=== PATIENT | female | born 1945 | race Caucasian/White ===

== ENCOUNTER 2021-08-30 15:11 | Observation (INO) ==
[2021-08-30 17:44] LABS: Albumin 4.5 g/dL (3.5-5.7); Albumin/Globulin Ratio 1.6 (1.1-2.2); Bilirubin,Total 0.4 mg/dL (0.3-1.0); Calcium 10.2 mg/dL (8.6-10.3); Globulin 2.8 g/dL (2.4-3.5); Potassium 3.5 mEq/L (3.5-5.1); Total Protein 7.3 g/dL (6.4-8.9)
[2021-08-30 17:46] LABS: Basophils # 0.1 K/mcL (0.0-0.2); Basophils % 0.5 %; Eosinophils # 0.3 K/mcL (0.0-0.6); Hematocrit 44.8 % (35.3-44.9); Hemoglobin 14.9 g/dL (11.5-15.4); Immature Granulocytes % 0.3 % (0-4); Lymphocytes # 1.3 K/mcL (0.6-4.6); Lymphocytes % 11.8 %; Mean Corpuscular HGB Conc 33.3 g/dL (31.6-35.5); Mean Corpuscular Hemoglobin 30.5 pg (28.0-33.3); Mean Corpuscular Volume 91.6 fL (83.0-100.0); Mean Platelet Volume 11.6 fL (9.4-12.4); Monocytes # 0.7 K/mcL (0.0-1.3); Neutrophils # 8.6 K/mcL (1.6-8.9); Platelet Count 257 K/mcL (140-400); Red Blood Count 4.89 M/mcL (3.82-4.97); Red Cell Distribution Width 13.2 % (11.5-14.5); Segmented Neutrophils % 78.4 %; White Blood Count 10.9 K/mcL (4.3-11.1)
[2021-08-30 18:02] LABS: Bilirubin,Urine Negative (Negative); Blood,Urine Negative (Negative); Clarity,Urine Clear (Clear); Color,Urine Light-Yellow (Yellow); Glucose,Urine (UA) Normal (Normal); Ketones,Urine Negative (Negative); Leukocyte Esterase,Urine Negative (Negative); Nitrite,Urine Negative (Negative); PH,Urine 6.5 pH Units (5.0-8.0); Protein,Urine Negative (Neg-Trace); Specific Gravity,Urine 1.015 (1.010-1.025); Urobilinogen,Urine Normal (Normal)
[2021-08-30] MEDS ORDERED: Melatonin 3 MG TABLET PO PRN (20:35)
[2021-08-30] MEDS ORDERED: Ondansetron ODT 4 MG TAB.RAPDIS SL PRN (20:35)
[2021-08-30] MEDS ORDERED: Naloxone 0.4 MG/ML INJ IVP PRN (20:35)
[2021-08-30] MEDS ORDERED: *HR* HYDROcodone/Acet 5/325 mg TABLET PO PRN (21:14)
[2021-08-30] MEDS ORDERED: Acetaminophen 325 MG TABLET PO PRN (21:14)
[2021-08-30 21:43] LABS: INR 1.1; Phosphorous 4.2 mg/dL (2.7-4.5); Prothrombin Time 12.3 Seconds (9.4-12.1)
[2021-08-30 21:46] LABS: Activated Partial Thrombo Time 32.7 Seconds (26.0-36.0)
[2021-08-30] MEDS ORDERED: 0.9 % Sodium Chloride 1,000 ML IVC SCH (21:52)
[2021-08-30] MEDS ORDERED: *HR* Dextrose 50 % in Water (Syg) 50 ML SYRINGE IVP PRN (22:32)
[2021-08-30] MEDS ORDERED: Gadolinium Contrast Agent (WT Based) IV PRN (22:34)
[2021-08-30] MEDS ORDERED: Dexamethasone Sodium Phos/PF 10 MG/ML VIAL IVP ONE (22:45)
[2021-08-30] MEDS: Gabapentin 100 MG CAPSULE PO SCH (22:52)
[2021-08-30] MEDS: *HR* HYDROcodone/Acet 5/325 mg TABLET PO PRN (23:12)
[2021-08-31 00:51] LABS: Basophils # 0.1 K/mcL (0.0-0.2); Basophils % 0.7 %; Eosinophils # 0.3 K/mcL (0.0-0.6); Eosinophils % 3.3 %; Hemoglobin 13.5 g/dL (11.5-15.4); Immature Granulocytes % 0.3 % (0-4); Lymphocytes # 0.9 K/mcL (0.6-4.6); Lymphocytes % 8.3 %; Mean Corpuscular HGB Conc 32.9 g/dL (31.6-35.5); Mean Corpuscular Hemoglobin 30.7 pg (28.0-33.3); Mean Corpuscular Volume 93.2 fL (83.0-100.0); Monocytes # 0.4 K/mcL (0.0-1.3); Monocytes % 3.5 %; Neutrophils # 8.7 K/mcL (1.6-8.9); Platelet Count 233 K/mcL (140-400); Red Cell Distribution Width 13.1 % (11.5-14.5); Segmented Neutrophils % 83.9 %; White Blood Count 10.4 K/mcL (4.3-11.1)
[2021-08-31 01:10] LABS: Calcium 9.5 mg/dL (8.6-10.3); Chol/HDL Ratio 3.3 (0-4.9); Potassium 3.5 mEq/L (3.5-5.1)
[2021-08-31] MEDS: *HR* HYDROcodone/Acet 5/325 mg TABLET PO PRN ×2 (07:07→14:50)
[2021-08-31] MEDS: Gabapentin 100 MG CAPSULE PO SCH (08:45)
[2021-08-31] MEDS ORDERED: Fluticasone Propionate Nasal 50 MCG/SPRAY BOTTLE NS PRN (11:12)
[2021-08-31] MEDS ORDERED: Triamterene/HCTZ 75/50 mg TABLET PO SCH (11:15)
[2021-08-31] MEDS ORDERED: D5% in Water 1,000 ML IVC PRN (13:21)
[2021-08-31] MEDS ORDERED: Dextrose Gel 15 GM/37.5 ML TUBE PO PRN ×2 (13:21)
[2021-08-31] MEDS: Baclofen 10 MG TABLET PO SCH (20:56)
[2021-08-31] MEDS: Gabapentin 300 MG CAPSULE PO SCH (20:56)
[2021-08-31] MEDS: traZODone 50 MG TABLET PO SCH (20:56)
[2021-09-01 02:59] LABS: Basophils # 0.1 K/mcL (0.0-0.2); Basophils % 0.5 %; Eosinophils # 0.2 K/mcL (0.0-0.6); Eosinophils % 1.5 %; Hematocrit 37.4 % (35.3-44.9); Hemoglobin 12.1 g/dL (11.5-15.4); Immature Granulocytes % 0.3 % (0-4); Lymphocytes # 1.7 K/mcL (0.6-4.6); Lymphocytes % 15.5 %; Mean Corpuscular HGB Conc 32.4 g/dL (31.6-35.5); Mean Corpuscular Hemoglobin 30.3 pg (28.0-33.3); Mean Corpuscular Volume 93.5 fL (83.0-100.0); Mean Platelet Volume 10.9 fL (9.4-12.4); Monocytes # 0.6 K/mcL (0.0-1.3); Monocytes % 5.9 %; Neutrophils # 8.1 K/mcL (1.6-8.9); Platelet Count 234 K/mcL (140-400); Red Cell Distribution Width 13.1 % (11.5-14.5); Segmented Neutrophils % 76.3 %; White Blood Count 10.6 K/mcL (4.3-11.1)
[2021-09-01 03:18] LABS: Calcium 9.2 mg/dL (8.6-10.3)
[2021-09-01] MEDS ORDERED: Tiotropium 10 INH DOSE IH ONE (07:14)
[2021-09-01] MEDS: Tiotropium 10 INH DOSE IH SCH (07:27)
[2021-09-01] MEDS: Baclofen 10 MG TABLET PO SCH ×2 (09:13→20:10)
[2021-09-01] MEDS: Gabapentin 300 MG CAPSULE PO SCH ×2 (09:13→20:11)
[2021-09-01] MEDS: Furosemide 40 MG TABLET PO SCH (09:13)
[2021-09-01] MEDS: Aspirin Enteric Coated 81 MG Tablet PO SCH (09:14)
[2021-09-01] MEDS: Cholecalciferol (D-3) 1,000 UNIT (25MCG) TABLET PO SCH (09:14)
[2021-09-01] MEDS: *HR* HYDROcodone/Acet 5/325 mg TABLET PO PRN ×2 (09:20→17:11)
[2021-09-01] MEDS: traZODone 50 MG TABLET PO SCH (20:10)
[2021-09-02 03:58] LABS: Basophils # 0.1 K/mcL (0.0-0.2); Basophils % 0.6 %; Eosinophils # 0.3 K/mcL (0.0-0.6); Eosinophils % 3.3 %; Hematocrit 37.8 % (35.3-44.9); Hemoglobin 12.1 g/dL (11.5-15.4); Immature Granulocytes % 0.3 % (0-4); Lymphocytes # 1.8 K/mcL (0.6-4.6); Lymphocytes % 20.5 %; Mean Corpuscular Hemoglobin 29.8 pg (28.0-33.3); Mean Corpuscular Volume 93.1 fL (83.0-100.0); Mean Platelet Volume 11.1 fL (9.4-12.4); Monocytes # 0.5 K/mcL (0.0-1.3); Monocytes % 5.6 %; Neutrophils # 6.2 K/mcL (1.6-8.9); Platelet Count 221 K/mcL (140-400); Red Blood Count 4.06 M/mcL (3.82-4.97); Red Cell Distribution Width 13.2 % (11.5-14.5); Segmented Neutrophils % 69.7 %; White Blood Count 8.9 K/mcL (4.3-11.1)
[2021-09-02 04:11] LABS: Potassium 3.4 mEq/L (3.5-5.1)
[2021-09-02] MEDS: Tiotropium 10 INH DOSE IH SCH (07:28)
[2021-09-02] MEDS: Aspirin Enteric Coated 81 MG Tablet PO SCH (08:12)
[2021-09-02] MEDS: Baclofen 10 MG TABLET PO SCH ×2 (08:12→20:43)
[2021-09-02] MEDS: Cholecalciferol (D-3) 1,000 UNIT (25MCG) TABLET PO SCH (08:12)
[2021-09-02] MEDS: Furosemide 40 MG TABLET PO SCH (08:12)
[2021-09-02] MEDS: Gabapentin 300 MG CAPSULE PO SCH ×2 (08:12→20:43)
[2021-09-02] MEDS: *HR* HYDROcodone/Acet 5/325 mg TABLET PO PRN ×2 (08:25→17:18)
[2021-09-02] MEDS: traZODone 50 MG TABLET PO SCH (20:43)
[2021-09-03 03:11] LABS: Basophils % 0.4 %; Eosinophils # 0.4 K/mcL (0.0-0.6); Eosinophils % 3.7 %; Hematocrit 38.9 % (35.3-44.9); Hemoglobin 12.6 g/dL (11.5-15.4); Immature Granulocytes % 0.4 % (0-4); Lymphocytes # 1.8 K/mcL (0.6-4.6); Lymphocytes % 19.1 %; Mean Corpuscular HGB Conc 32.4 g/dL (31.6-35.5); Mean Corpuscular Hemoglobin 30.4 pg (28.0-33.3); Mean Corpuscular Volume 93.7 fL (83.0-100.0); Mean Platelet Volume 11.1 fL (9.4-12.4); Monocytes # 0.6 K/mcL (0.0-1.3); Monocytes % 6.1 %; Neutrophils # 6.7 K/mcL (1.6-8.9); Platelet Count 205 K/mcL (140-400); Red Blood Count 4.15 M/mcL (3.82-4.97); Red Cell Distribution Width 13.2 % (11.5-14.5); Segmented Neutrophils % 70.3 %; White Blood Count 9.5 K/mcL (4.3-11.1)
[2021-09-03 03:28] LABS: BUN/Creatinine Ratio 29 (6-26); Blood Urea Nitrogen 30 mg/dL (8-23); Calcium 9.4 mg/dL (8.6-10.3); Carbon Dioxide 27 mEq/L (23-29); Chloride 110 mEq/L (98-107); Glucose 113 mg/dL (70-105); Osmolality,Calculated 305 (280-300); Potassium 3.4 mEq/L (3.5-5.1); Sodium 144 mEq/L (136-145); eGFR For African Americans > 60 (> 60); eGFR For Non-African Americans 51 (> 60)
[2021-09-03] MEDS: *HR* HYDROcodone/Acet 5/325 mg TABLET PO PRN (03:41)
[2021-09-03] MEDS: Tiotropium 10 INH DOSE IH SCH (08:01)
[2021-09-03] MEDS: Aspirin Enteric Coated 81 MG Tablet PO SCH (09:15)
[2021-09-03] MEDS: Gabapentin 300 MG CAPSULE PO SCH ×2 (09:15→20:35)
[2021-09-03] MEDS: Cholecalciferol (D-3) 1,000 UNIT (25MCG) TABLET PO SCH (09:15)
[2021-09-03] MEDS: Baclofen 10 MG TABLET PO SCH ×2 (09:15→20:34)
[2021-09-03] MEDS: Furosemide 40 MG TABLET PO SCH (09:15)
[2021-09-03] MEDS: *HR* OxyCODONE Immed Rel 5 MG TABLET PO PRN ×2 (10:39→15:32)
[2021-09-03] MEDS: *HR* Heparin 5,000 UNIT/ML VIAL SQ SCH ×2 (15:30→20:35)
[2021-09-03] MEDS: traZODone 50 MG TABLET PO SCH (20:34)
[2021-09-04] MEDS: *HR* Heparin 5,000 UNIT/ML VIAL SQ SCH ×3 (05:19→20:49)
[2021-09-04] MEDS: Tiotropium 10 INH DOSE IH SCH (07:37)
[2021-09-04] MEDS: Insulin LISPRO 300 UNITS/3 ML VIAL SUBQ SCH ×4 (08:13→20:43)
[2021-09-04] MEDS: Gabapentin 300 MG CAPSULE PO SCH ×2 (08:21→20:49)
[2021-09-04] MEDS: Aspirin Enteric Coated 81 MG Tablet PO SCH (08:21)
[2021-09-04] MEDS: Baclofen 10 MG TABLET PO SCH ×2 (08:22→20:49)
[2021-09-04] MEDS: Furosemide 40 MG TABLET PO SCH (08:22)
[2021-09-04] MEDS: Cholecalciferol (D-3) 1,000 UNIT (25MCG) TABLET PO SCH (08:22)
[2021-09-04] MEDS: *HR* OxyCODONE Immed Rel 5 MG TABLET PO PRN (11:35)
[2021-09-04] MEDS: traZODone 50 MG TABLET PO SCH (20:48)
[2021-09-05 03:20] LABS: Basophils # 0.1 K/mcL (0.0-0.2); Basophils % 0.5 %; Eosinophils # 0.2 K/mcL (0.0-0.6); Eosinophils % 2.4 %; Hematocrit 37.1 % (35.3-44.9); Hemoglobin 11.8 g/dL (11.5-15.4); Immature Granulocytes % 0.4 % (0-4); Lymphocytes # 1.4 K/mcL (0.6-4.6); Mean Corpuscular HGB Conc 31.8 g/dL (31.6-35.5); Mean Corpuscular Hemoglobin 29.9 pg (28.0-33.3); Mean Corpuscular Volume 94.2 fL (83.0-100.0); Mean Platelet Volume 11.6 fL (9.4-12.4); Monocytes # 0.6 K/mcL (0.0-1.3); Monocytes % 6.4 %; Neutrophils # 7.5 K/mcL (1.6-8.9); Platelet Count 182 K/mcL (140-400); Red Blood Count 3.94 M/mcL (3.82-4.97); Red Cell Distribution Width 13.2 % (11.5-14.5); Segmented Neutrophils % 76.3 %; White Blood Count 9.8 K/mcL (4.3-11.1)
[2021-09-05 03:36] LABS: BUN/Creatinine Ratio 31 (6-26); Blood Urea Nitrogen 36 mg/dL (8-23); Calcium 9.4 mg/dL (8.6-10.3); Carbon Dioxide 26 mEq/L (23-29); Chloride 106 mEq/L (98-107); Glucose 113 mg/dL (70-105); Osmolality,Calculated 303 (280-300); Potassium 3.2 mEq/L (3.5-5.1); Sodium 142 mEq/L (136-145); eGFR For African Americans 55 (> 60); eGFR For Non-African Americans 46 (> 60)
[2021-09-05] MEDS: *HR* Heparin 5,000 UNIT/ML VIAL SQ SCH ×3 (05:24→21:18)
[2021-09-05] MEDS: Tiotropium 10 INH DOSE IH SCH (07:20)
[2021-09-05] MEDS: Furosemide 40 MG TABLET PO SCH (07:52)
[2021-09-05] MEDS: Gabapentin 300 MG CAPSULE PO SCH ×2 (07:52→21:17)
[2021-09-05] MEDS: Aspirin Enteric Coated 81 MG Tablet PO SCH (07:53)
[2021-09-05] MEDS: Cholecalciferol (D-3) 1,000 UNIT (25MCG) TABLET PO SCH (07:53)
[2021-09-05] MEDS: Baclofen 10 MG TABLET PO SCH ×2 (07:53→21:17)
[2021-09-05] MEDS: Insulin LISPRO 300 UNITS/3 ML VIAL SUBQ SCH ×4 (08:01→20:47)
[2021-09-05] MEDS: traZODone 50 MG TABLET PO SCH (21:17)
[2021-09-06] MEDS: *HR* Heparin 5,000 UNIT/ML VIAL SQ SCH ×2 (05:38→13:02)
[2021-09-06] MEDS: Tiotropium 10 INH DOSE IH SCH (07:13)
[2021-09-06] MEDS: Insulin LISPRO 300 UNITS/3 ML VIAL SUBQ SCH ×3 (08:37→19:47)
[2021-09-06] MEDS: Aspirin Enteric Coated 81 MG Tablet PO SCH (09:33)
[2021-09-06] MEDS: Gabapentin 300 MG CAPSULE PO SCH ×2 (09:34→20:06)
[2021-09-06] MEDS: Baclofen 10 MG TABLET PO SCH ×2 (09:34→20:06)
[2021-09-06] MEDS: Cholecalciferol (D-3) 1,000 UNIT (25MCG) TABLET PO SCH (09:34)
[2021-09-06] MEDS: Furosemide 40 MG TABLET PO SCH (09:34)
[2021-09-06 15:46] VITALS: TEMP 98.4; O2SAT 95
[2021-09-06 17:15] LABS: Influenza A PCR Negative (Negative); Influenza B PCR Negative (Negative); Resp. Syncytial Virus PCR Negative (Negative)
[2021-09-06 17:16] LABS: SARS-CoV-2 by PCR (In House) Negative (Negative)
[2021-09-06 18:55] LABS: Metanephrine, Plasma 0.22 nmol/L (0.00-0.49)
[2021-09-06] MEDS: *HR* OxyCODONE Immed Rel 5 MG TABLET PO PRN (20:06)
[2021-09-06] MEDS: traZODone 50 MG TABLET PO SCH (20:06)
[2021-09-06 20:11] VITALS: BP 115/71; PULSE 76
== END 2021-09-06 22:22 ==
LOC: 3ANU 15:11 → EMEROOARM 15:11 → SUATTDRO 20:24 → 3ANU 20:59 → UNDODISOB 09-04 16:28
PROVIDERS: ADMIT Internal Medicine; ATTEND Family Medicine

== ENCOUNTER 2021-10-23 15:16 | Inpatient (IN) ==
[2021-10-23 19:42] LABS: VBG HCO3 31 mEq/L (21-27); VBG PCO2 59 mmHg (41-51); VBG PH 7.33 pH Units (7.32-7.42); VBG PO2 61 mmHg (25-50)
[2021-10-23 19:42] LABS: Basophils % 0.4 %; Eosinophils # 0.1 K/mcL (0.0-0.6); Hematocrit 42.3 % (35.3-44.9); Hemoglobin 13.4 g/dL (11.5-15.4); Immature Granulocytes % 0.3 % (0-4); Lymphocytes % 9.8 %; Mean Corpuscular HGB Conc 31.7 g/dL (31.6-35.5); Mean Corpuscular Hemoglobin 29.5 pg (28.0-33.3); Mean Corpuscular Volume 93.2 fL (83.0-100.0); Monocytes # 0.4 K/mcL (0.0-1.3); Monocytes % 3.4 %; Neutrophils # 8.6 K/mcL (1.6-8.9); Platelet Count 288 K/mcL (140-400); Red Blood Count 4.54 M/mcL (3.82-4.97); Red Cell Distribution Width 12.8 % (11.5-14.5); Segmented Neutrophils % 85.1 %; White Blood Count 10.2 K/mcL (4.3-11.1)
[2021-10-23 20:27] LABS: Influenza A PCR Negative (Negative); Influenza B PCR Negative (Negative); Resp. Syncytial Virus PCR Negative (Negative)
[2021-10-23 20:32] LABS: Alanine Aminotransferase 6 Units/L (7-52); Albumin 4.4 g/dL (3.5-5.7); Albumin/Globulin Ratio 1.5 (1.1-2.2); Alkaline Phosphatase 81 Units/L (34-104); Aspartate Amino Transferase 14 Units/L (13-39); BUN/Creatinine Ratio 33 (6-26); Bilirubin,Total 0.3 mg/dL (0.3-1.0); Blood Urea Nitrogen 61 mg/dL (8-23); Carbon Dioxide 31 mEq/L (23-29); Chloride 101 mEq/L (98-107); Globulin 2.9 g/dL (2.4-3.5); Glucose 122 mg/dL (70-105); Osmolality,Calculated 313 (280-300); Potassium 4.1 mEq/L (3.5-5.1); Sodium 142 mEq/L (136-145); Total Protein 7.3 g/dL (6.4-8.9); Troponin I < 0.03 ng/mL (< 0.04); eGFR For African Americans 32 (> 60); eGFR For Non-African Americans 27 (> 60)
[2021-10-23 20:53] LABS: SARS-CoV-2 by PCR (In House) Negative (Negative)
[2021-10-23] MEDS ORDERED: methylPREDNISolone 125 MG/2 ML VIAL IVP ONE (21:14)
[2021-10-23] MEDS ORDERED: Ipratropium/Albuterol Neb 3 ML IH ONE (21:14)
[2021-10-23] MEDS ORDERED: Azithromycin 500 MG in 0.9 % Sodium Chloride 250 ML IVPB ONE (21:15)
[2021-10-23] MEDS ORDERED: cefTRIAXone 1,000 MG in 0.9 % Sodium Chloride 10 ML IVP ONE (21:15)
[2021-10-23] MEDS ORDERED: Naloxone 0.4 MG/ML INJ IVP PRN (22:43)
[2021-10-23] MEDS ORDERED: Acetaminophen 325 MG TABLET PO PRN (22:43)
[2021-10-23] MEDS ORDERED: Ondansetron 4 MG/2 ML VIAL IVP PRN (22:43)
[2021-10-23] MEDS ORDERED: Melatonin 3 MG TABLET PO PRN (22:43)
[2021-10-24] MEDS: 0.9 % Sodium Chloride 1,000 ML IVC SCH ×2 (00:22→11:58)
[2021-10-24] MEDS ORDERED: *HR* Dextrose 50 % in Water (Syg) 50 ML SYRINGE IVP PRN (05:22)
[2021-10-24] MEDS ORDERED: Dextrose Gel 15 GM/37.5 ML TUBE PO PRN ×2 (05:22)
[2021-10-24] MEDS ORDERED: D5% in Water 1,000 ML IVC PRN (05:22)
[2021-10-24 06:12] LABS: Basophils % 0.3 %; Eosinophils % 0.1 %; Hematocrit 37.1 % (35.3-44.9); Immature Granulocytes % 0.5 % (0-4); Lymphocytes # 0.5 K/mcL (0.6-4.6); Lymphocytes % 6.3 %; Mean Corpuscular HGB Conc 31.5 g/dL (31.6-35.5); Mean Corpuscular Hemoglobin 29.3 pg (28.0-33.3); Mean Corpuscular Volume 92.8 fL (83.0-100.0); Mean Platelet Volume 10.7 fL (9.4-12.4); Monocytes % 0.5 %; Neutrophils # 7.2 K/mcL (1.6-8.9); Platelet Count 252 K/mcL (140-400); Red Cell Distribution Width 12.4 % (11.5-14.5); Segmented Neutrophils % 92.3 %; White Blood Count 7.8 K/mcL (4.3-11.1)
[2021-10-24 06:16] LABS: Hemoglobin 11.7 g/dL (11.5-15.4)
[2021-10-24 06:26] LABS: Albumin 3.9 g/dL (3.5-5.7); Albumin/Globulin Ratio 1.5 (1.1-2.2); Bilirubin,Total 0.2 mg/dL (0.3-1.0); Calcium 9.4 mg/dL (8.6-10.3); Globulin 2.6 g/dL (2.4-3.5); Magnesium 2.1 mg/dL (1.6-2.6); Phosphorous 3.4 mg/dL (2.7-4.5); Potassium 3.9 mEq/L (3.5-5.1); Total Protein 6.5 g/dL (6.4-8.9)
[2021-10-24] MEDS: Insulin LISPRO 300 UNITS/3 ML VIAL SUBQ SCH ×3 (11:52→23:43)
[2021-10-24] MEDS ORDERED: Fluticasone Propionate Nasal 50 MCG/SPRAY BOTTLE NS PRN (12:28)
[2021-10-24] MEDS ORDERED: Sennosides/Docusate Sodium TABLET PO PRN (12:28)
[2021-10-24] MEDS ORDERED: Aspirin Enteric Coated 81 MG Tablet PO SCH (12:30)
[2021-10-24] MEDS ORDERED: levoFLOXacin 750 MG TABLET PO SCH (12:30)
[2021-10-24] MEDS ORDERED: NON-FORMULARY MEDICATION 1 EACH EACH (Losartan Potassium 100 MG Tablet) PO SCH (12:30)
[2021-10-24] MEDS ORDERED: Triamterene/HCTZ 75/50 mg TABLET PO SCH (12:30)
[2021-10-24 14:06] LABS: Prothrombin Time 11.3 Seconds (9.4-12.1)
[2021-10-24 14:08] LABS: Activated Partial Thrombo Time 30.1 Seconds (26.0-36.0)
[2021-10-24] MEDS ORDERED: traZODone 50 MG TABLET PO SCH (21:00)
[2021-10-24] MEDS ORDERED: Gabapentin 300 MG CAPSULE PO SCH (21:00)
[2021-10-25] MEDS: 0.9 % Sodium Chloride 1,000 ML IVC SCH (03:41)
[2021-10-25] MEDS ORDERED: CeFAZolin Syr 2,000MG/20 ML 2,000 MG/20 ML SYRINGE IVPB ONE (07:04)
[2021-10-25] MEDS ORDERED: *HR* FentaNYL (PF) 100 MCG/2 ML VIAL ONE (07:12)
[2021-10-25] MEDS ORDERED: Lidocaine -MPF 2% 5 ML VIAL ONE (07:12)
[2021-10-25] MEDS ORDERED: *HR* Propofol 200 MG/20 ML VIAL IVP ONE (07:12)
[2021-10-25] MEDS ORDERED: *HR* Succinylcholine 200 MG/10 ML VIAL IVP ONE (07:12)
[2021-10-25] MEDS ORDERED: *HR* Phenylephrine 10 MG/ML VIAL ONE (07:12)
[2021-10-25] MEDS ORDERED: *HR* Remifentanil 2 MG VIAL IVP ONE (07:12)
[2021-10-25] MEDS ORDERED: Ringers Solution, Lactated 1,000 ML IVC SCH (07:15)
[2021-10-25] MEDS: Insulin LISPRO 300 UNITS/3 ML VIAL SUBQ SCH (07:16)
[2021-10-25] MEDS ORDERED: Bupivacaine/EPI 1:200k 0.25% 50 ML VIAL ONE (07:32)
[2021-10-25] MEDS ORDERED: *HR* Labetalol 20 MG/4 ML SYRINGE IVP PRN (08:08)
[2021-10-25] MEDS ORDERED: Albuterol 2.5 MG/3 ML NEBULIZER IH PRN (08:08)
[2021-10-25] MEDS ORDERED: *HR* OxyCODONE Immed Rel 5 MG TABLET PO PRN (08:08)
[2021-10-25] MEDS ORDERED: *HR* FentaNYL (PF) 100 MCG/2 ML VIAL IVP PRN (08:08)
[2021-10-25] MEDS ORDERED: Ipratropium Neb 0.5 MG NEBULIZER IH PRN (08:08)
[2021-10-25] MEDS ORDERED: Ondansetron 4 MG/2 ML VIAL IVP PRN ×2 (08:08→13:36)
[2021-10-25] MEDS ORDERED: Acetaminophen IV 1,000 MG/100 ML BAG IVPB PRN (08:08)
[2021-10-25] MEDS ORDERED: Furosemide 40 MG TABLET PO SCH (09:00)
[2021-10-25] MEDS ORDERED: tiZANidine 4 MG TABLET PO SCH (09:00)
[2021-10-25] MEDS ORDERED: EPHEDrine 50 MG/ML VIAL ONE (09:11)
[2021-10-25 09:35] LABS: BUN/Creatinine Ratio 30 (6-26); Blood Urea Nitrogen 31 mg/dL (8-23); Carbon Dioxide 29 mEq/L (23-29); Chloride 107 mEq/L (98-107); Glucose 93 mg/dL (70-105); Magnesium 1.8 mg/dL (1.6-2.6); Osmolality,Calculated 298 (280-300); Phosphorous 2.6 mg/dL (2.7-4.5); Potassium 3.4 mEq/L (3.5-5.1); Sodium 141 mEq/L (136-145); eGFR For African Americans > 60 (> 60); eGFR For Non-African Americans 52 (> 60)
[2021-10-25] MEDS ORDERED: Tiotropium 10 INH DOSE IH SCH (10:00)
[2021-10-25] MEDS ORDERED: Vancomycin 1,000 MG VIAL ONE (10:12)
[2021-10-25] MEDS ORDERED: Ondansetron 4 MG/2 ML VIAL ONE (10:34)
[2021-10-25] MEDS ORDERED: Acetaminophen IV 1,000 MG/100 ML BAG IVPB ONE (10:58)
[2021-10-25] MEDS: *HR* HYDROmorphone PF 0.5 MG/0.5 ML SYRINGE IVP PRN ×4 (11:36→12:12)
[2021-10-25] MEDS ORDERED: *HR* Dextrose 50 % in Water (Syg) 50 ML SYRINGE IVP PRN (13:36)
[2021-10-25] MEDS ORDERED: Fluticasone Propionate Nasal 50 MCG/SPRAY BOTTLE NS PRN (13:36)
[2021-10-25] MEDS ORDERED: Baclofen 10 MG TABLET PO PRN (13:36)
[2021-10-25] MEDS ORDERED: Naloxone 0.4 MG/ML INJ IVP PRN (13:36)
[2021-10-25] MEDS ORDERED: Dextrose Gel 15 GM/37.5 ML TUBE PO PRN ×2 (13:36)
[2021-10-25] MEDS ORDERED: Melatonin 3 MG TABLET PO PRN (13:36)
[2021-10-25] MEDS: tiZANidine 4 MG TABLET PO SCH ×2 (14:35→21:11)
[2021-10-25] MEDS: Acetaminophen 325 MG TABLET PO SCH ×3 (14:36→22:52)
[2021-10-25] MEDS: Ringers Solution, Lactated 1,000 ML IVC SCH ×2 (14:37→22:53)
[2021-10-25] MEDS: CeFAZolin 2 GM/120 ML BAG IVPB SCH ×2 (16:20→22:57)
[2021-10-25] MEDS: *HR* Metformin 500 MG TABLET PO SCH (21:11)
[2021-10-25] MEDS: *HR* OxyCODONE Immed Rel 5 MG TABLET PO PRN (21:12)
[2021-10-25] MEDS: Gabapentin 300 MG CAPSULE PO SCH (21:12)
[2021-10-25] MEDS: traZODone 50 MG TABLET PO SCH (22:52)
[2021-10-26] MEDS: *HR* OxyCODONE Immed Rel 5 MG TABLET PO PRN ×3 (04:47→23:44)
[2021-10-26] MEDS: Acetaminophen 325 MG TABLET PO SCH ×4 (05:06→23:44)
[2021-10-26] MEDS: 0.9 % Sodium Chloride 1,000 ML IVC SCH ×2 (07:30→07:32)
[2021-10-26 08:52] LABS: BUN/Creatinine Ratio 16 (6-26); Blood Urea Nitrogen 15 mg/dL (8-23); Calcium 8.9 mg/dL (8.6-10.3); Carbon Dioxide 25 mEq/L (23-29); Chloride 108 mEq/L (98-107); Glucose 101 mg/dL (70-105); Magnesium 1.6 mg/dL (1.6-2.6); Osmolality,Calculated 291 (280-300); Phosphorous 2.7 mg/dL (2.7-4.5); Potassium 3.8 mEq/L (3.5-5.1); Sodium 140 mEq/L (136-145); eGFR For African Americans > 60 (> 60); eGFR For Non-African Americans 59 (> 60)
[2021-10-26] MEDS: Gabapentin 300 MG CAPSULE PO SCH ×2 (09:14→21:14)
[2021-10-26] MEDS: Aspirin Enteric Coated 81 MG Tablet PO SCH (09:14)
[2021-10-26] MEDS: Furosemide 40 MG TABLET PO SCH (09:14)
[2021-10-26] MEDS: tiZANidine 4 MG TABLET PO SCH ×3 (09:14→21:13)
[2021-10-26] MEDS: Ringers Solution, Lactated 1,000 ML IVC SCH ×2 (09:15→18:00)
[2021-10-26 09:25] LABS: Basophils % 0.3 %; Eosinophils # 0.1 K/mcL (0.0-0.6); Eosinophils % 1.4 %; Hematocrit 35.6 % (35.3-44.9); Hemoglobin 11.6 g/dL (11.5-15.4); Immature Granulocytes % 0.5 % (0-4); Lymphocytes % 10.1 %; Mean Corpuscular HGB Conc 32.6 g/dL (31.6-35.5); Mean Corpuscular Hemoglobin 29.5 pg (28.0-33.3); Mean Corpuscular Volume 90.6 fL (83.0-100.0); Mean Platelet Volume 10.8 fL (9.4-12.4); Monocytes # 0.7 K/mcL (0.0-1.3); Monocytes % 7.3 %; Neutrophils # 8.1 K/mcL (1.6-8.9); Platelet Count 209 K/mcL (140-400); Red Blood Count 3.93 M/mcL (3.82-4.97); Red Cell Distribution Width 12.3 % (11.5-14.5); Segmented Neutrophils % 80.4 %; White Blood Count 10.1 K/mcL (4.3-11.1)
[2021-10-26] MEDS: Tiotropium 10 INH DOSE IH SCH (09:45)
[2021-10-26] MEDS ORDERED: levoFLOXacin 750 MG TABLET PO SCH (12:30)
[2021-10-26] MEDS: traZODone 50 MG TABLET PO SCH (21:14)
[2021-10-26] MEDS: *HR* Metformin 500 MG TABLET PO SCH (21:15)
[2021-10-27] MEDS: Ringers Solution, Lactated 1,000 ML IVC SCH (05:07)
[2021-10-27] MEDS: Acetaminophen 325 MG TABLET PO SCH ×3 (05:12→10:12)
[2021-10-27] MEDS: Tiotropium 10 INH DOSE IH SCH (07:42)
[2021-10-27] MEDS: *HR* OxyCODONE Immed Rel 5 MG TABLET PO PRN (10:12)
[2021-10-27] MEDS: Gabapentin 300 MG CAPSULE PO SCH (10:12)
[2021-10-27] MEDS: tiZANidine 4 MG TABLET PO SCH (10:12)
[2021-10-27] MEDS: Aspirin Enteric Coated 81 MG Tablet PO SCH (10:12)
[2021-10-27] MEDS: Furosemide 40 MG TABLET PO SCH (10:12)
[2021-10-27 10:54] VITALS: BP 131/77; PULSE 100; TEMP 97.6; O2SAT 94
== END 2021-10-27 16:00 | disposition home health service (06) | DRG 981 ==
LOC: 3ANU 15:16 → EMEROOARM 15:16 → SUATTDRO 21:45 → 3ANU 22:12 → 4WAOSI 10-25 13:08
PROVIDERS: ADMIT Family Medicine; ATTEND Internal Medicine